=== PATIENT | male | born 1950 | race Caucasian/White ===

== ENCOUNTER → 2020-07-24 | Outpatient (CLI) | payer MEDICARE ==
[~2020-07-24] MED LIST: ALPRAZOLAM0.25 MG PO
== END ==
LOC: COL.CARD 10:56
DX: I48.0 Paroxysmal atrial fibrillation (principal)

== ENCOUNTER 2021-04-30 10:01 | Outpatient (CLI) | payer MEDICARE ==
[~2021-04-30] VITALS: Ht 182.9 cm; Wt 132.7 kg
[~2021-04-30 10:01] MED LIST changes: +BENICAR40 MG PO; +FARXIGA10 PO; +GLUCOTROL 5M5 MG/TAB PO; +INDERAL LA120 MG PO; +JANUMET 500 MG-1 TA1 PO; +TOUJEO300 U/ML SQ; +XANAX 1MG1 MG PO; +ZOCOR 10MG10 MG PO
[2021-04-30 10:57] VITALS: BP 129/90; PULSE 83; TEMP 98.3
[2021-04-30] MEDS ORDERED: TOUJEO300 U/ML SQ (11:18)
[2021-05-01] MEDS ORDERED: NITROSTAT0.6 MG SL (10:50)
[2021-05-01] MEDS ORDERED: PLAVIX 75MG TAB75 MG PO (10:50)
[2021-05-01] MEDS ORDERED: ASPIRIN E.C. 8181 MG PO (10:52)
[2021-05-01] MEDS ORDERED: CARDENE 20MG CA20 M1 PO (13:59)
== END 2021-05-01 09:40 ==
LOC: COL.CARD 10:01
DX: R07.9 Chest pain, unspecified (principal)
CPT/HCPCS: A9500; J2785

== ENCOUNTER 2021-05-01 10:19 | Day surgery (SDC) | payer MEDICARE, BC ==
[~2021-05-01] VITALS: Ht 183 cm; Wt 130.0 kg
[2021-05-01] VITALS (11 sets, daily range): BP systolic 91–145; BP diastolic 71–87; PULSE 66–77; TEMP 98
[2021-05-01] MEDS ORDERED: PLAVIX 75MG TAB75 MG PO (10:50)
[2021-05-01] MEDS ORDERED: NITROSTAT0.6 MG SL (10:50)
[2021-05-01] MEDS ORDERED: ASPIRIN E.C. 8181 MG PO (10:52)
[2021-05-01 10:54] LABS: HEMATOCRIT 50.3 % (42.0-52.0); HEMOGLOBIN 17.1 g/dl (13.5-18.0); MEAN CELL VOLUME 90 fl (80.0-100.0); MEAN CORPUSCULAR HEMOGLOBIN 31 pg (27.0-31.0); MEAN CORPUSCULAR HGB CONC 34 g/dl (33.0-37.0); MEAN PLATELET VOLUME 9.3 fl (7.4-10.4); PLATELET COUNT 148 K/mm3 (130-400); RED BLOOD COUNT 5.58 M/mm3 (4.20-5.60); REDCELL DISTRIBUTION WIDTH-CV 13.2 % (11.5-14.5)
[2021-05-01 11:03] LABS: CALCIUM 9.7 mg/dL (8.4-10.2); CREATININE, serum 1.04 (0.66-1.25); POTASSIUM 4.2 mmol/L (3.4-5.0)
[2021-05-01 11:04] LABS: INR 0.9 (0.8-3.0)
[2021-05-01 11:06] LABS: PARTIAL THROMBOPLASTIN TIME 25.5 SECONDS (26.0-37.0)
--- NOTE | 2021-05-01 11:08 | NUR ---
Discharge instructions given to pt.ptverbalizes understanding.INT removed,catheter tip intact.
--- NOTE | 2021-05-01 13:04 | NUR ---
SEE MERGE DOCUMENTATION FOR MEDICATION ADMINISTRATION TIMES AND INTRA/POST PROCEDURE SEDATION ASSESSMENTS.
[2021-05-01] MEDS ORDERED: CARDENE 20MG CA20 M1 PO (13:59)
--- NOTE | 2021-05-01 17:35 | NUR ---
Air was removed from TR band in 2 ml increments, no bleeding from radial puncture site. Site dressed with folded 2x2 and bandaid. Pt steady on feet in room. INT DC'd with catheter intact. Pt expresses understanding of DC instructions. He is escorted out to 's car with belongings.
== END 2021-05-01 17:44 | disposition home or self-care (01) ==
LOC: COL.CAR 10:19
PROVIDERS: Internal Medicine Interventional Cardiology
DX: I25.10 Atherosclerotic heart disease of native coronary artery without angina pectoris (principal); I24.8 Other forms of acute ischemic heart disease; E78.5 Hyperlipidemia, unspecified; Z20.822 Contact with and (suspected) exposure to COVID-19; Z79.82 Long term (current) use of aspirin
CPT/HCPCS: J1644; J2250; J3010; Q9967